=== PATIENT | male | born 1940 | race Caucasian/White ===

== ENCOUNTER 2023-10-30 02:41 | Emergency (ER) | payer MEDICARE, OTHER ==
[~2023-10-30] VITALS: Ht 167.6 cm; Wt 68.0 kg
[2023-10-30 02:43] VITALS: O2SAT 100
[2023-10-30 04:48] LABS: HEMATOCRIT. 30.8 % (42.0-52.0); HEMOGLOBIN. 10.5 g/dL (14.0-18.0); MEAN CORPUSCULAR HGB CONC 34.1 g/dL (31.0-37.0); MEAN CORPUSCULAR VOLUME 91.1 fL (80.0-94.0); MEAN PLATELET VOLUME 10.5 fl (7.4-10.4); PLATELET 249 x1000/uL (130-400); RED BLOOD CELL COUNT 3.39 mill/uL (4.7-6.1); RED CELL DISTRIBUTION WIDTH 15.7 % (11.6-14.6); WHITE BLOOD COUNT 12.1 x1000/uL (4.5-11.0)
[2023-10-30 04:49] LABS: DIFFERENTIAL COMMENT 1
[2023-10-30 05:03] LABS: CHLORIDE 100 mEq/L (98-107); POTASSIUM 4.4 mEq/L (3.5-5.1); SODIUM 133 mEq/L (136-145)
[2023-10-30 05:04] LABS: CARBON DIOXIDE 28 mEq/L (21-32)
[2023-10-30 05:09] LABS: CREATININE 1.3 mg/dL (0.6-1.3); GLUCOSE 93 mg/dL (70-105); UREA NITROGEN BLOOD 28 mg/dL (9-23)
[2023-10-30 05:10] LABS: TROPONIN I HIGH SENSITIVITY 11 ng/L (3.0-53)
[2023-10-30] MEDS ORDERED: IPRATROPIUM/ALBUTEROL 0.5-3(2.5)MG/3ML NEB HHN PRN (08:00)
[2023-10-30] MEDS ORDERED: ONDANSETRON HCL 4MG/2ML INJ IV PRN (08:00)
[2023-10-30] MEDS ORDERED: GUAIFENESIN 200MG/10ML SUGAR FREE UDC PO PRN (08:00)
[2023-10-30] MEDS ORDERED: CLONIDINE 0.1MG TABLET PO PRN (08:00)
[2023-10-30] MEDS ORDERED: DOCUSATE SODIUM 100MG CAPSULE PO PRN (08:00)
[2023-10-30] MEDS ORDERED: ACETAMINOPHEN 325MG TABLET PO PRN (08:00)
[2023-10-30] MEDS ORDERED: SODIUM CHLORIDE 0.9% 1,000 ML IV SCH (08:00)
[2023-10-30 09:04] LABS: IRON 46 ug/dL (65-175)
[2023-10-30 09:05] LABS: CREATINE KINASE MB FRACTION 6.2 ng/mL (0.5-3.6)
[2023-10-30 09:06] LABS: CREATINE KINASE 114 IU/L (46-171); PHOSPHORUS 2.7 mg/dL (2.5-4.9)
[2023-10-30 09:07] LABS: D-DIMER 0.91 mg/L FEU (<0.50); INR 0.9; PROTHROMBIN TIME 10.4 sec (9.6-11.0); TOTAL IRON BINDING CAPACITY 286 ug/dl (250-425)
[2023-10-30 09:09] LABS: T4 FREE 1.49 ng/dL (0.89-1.76)
[2023-10-30 09:14] LABS: FOLIC ACID (FOLATE) SERUM > 20.00 ng/mL (>5.38); VITAMIN B12 SERUM 402 pg/mL (211-911)
[2023-10-30 11:35] VITALS: BP 149/56; PULSE 84; RESP 16; TEMP 98.4
[2023-10-30 11:46] LABS: ANISOCYTOSIS 1+; PLATELET ESTIMATE NORMAL
== END 2023-10-30 12:03 | disposition left against medical advice (07) ==
LOC: ER 02:41
DX: R53.1 Weakness (principal); R29.6 Repeated falls; R62.7 Adult failure to thrive; D64.9 Anemia, unspecified; I10 Essential (primary) hypertension; G30.9 Alzheimer's disease, unspecified
CPT/HCPCS: 36415; 71045; 80048; 82550; 82553; 82607; 82746; 83540; 83550; 83605; 83735; 83880; 84100; 84145; 84439; 84484; 85025; 85379; 93005; 93970; 99285